=== PATIENT | male | born 1945 | race Caucasian/White ===

== ENCOUNTER → 2016-11-18 | Outpatient (CLI) | payer MEDICARE, OTHER ==
--- NOTE | 2016-11-18 16:09 | RADRPT ---
PROCEDURE: XR AP pelvis/left hip. CLINICAL INDICATION: Hip pain TECHNIQUE: AP pelvis/lateral left hip views performed. COMPARISON: 12/25/2015 FINDINGS: There is a left total hip replacement. There is no evidence of loosening of the prosthesis. There is mild right hip osteoarthrosis. This is associated with joint space narrowing, subchondral s clerosis and osteophytosis. There is normal osseous mineralization. No fractures or osseous lesion s are identified. The soft tissues are unremarkable. IMPRESSION: Left total hip replacement Mild right hip osteoarthrosis. RPTAT: [facility] .Isauro Zamora MD, Date Time Electronically viewed and signed by .Isauro Zamora MD, on 11/18/2016 16:08 .B/
--- NOTE | 2016-11-18 19:16 | HKNOTE ---
DATE OF SERVICE: Patient comes in complaining of an elevated cobalt and chromium level. He had a metal on metal hip replacement, which was performed many years ago by Dr. Hillman (approximately 12 years ago). He has had elevated cobalt and chromium levels. He gets annual cobalt and chromium levels. 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 He has no pain whatsoever in his left hip. His recent cobalt and chromium levels increased slightly and his fire lieutenant marine was "very concerned." Jay self comes in for questions. He comes in with his . PHYSICAL EXAMINATION: VITAL SIGNS: Height 5 foot 10 inches, weight 153 pounds. Blood pressure 160/70, temperature 98.7. HIPS: Both hips have full range of motion without pain. IMAGING: Plain x-rays of his pelvis and left hip obtained today show all components to be satisfact ory and appear to be well attached to the bone. The femoral component is in slight varus and there is some suggestion that it may in fact have some loosening, but there is a bridge of bone on the med ial aspect of the stem near the distal end, which seems to suggest that there is indeed anchorage. Given the fact that he has no pain my suspicion would be that it is well attached to the bone. The most recent cobalt and chromium levels on 10/29/2016. Chromium 8.2. Jennings 7.3. MANAGEMENT: The patient is advised that these levels are below what would be considered to be a thr eat level, which is currently considered to be 10. I gave them reassurance that nothing needs to be done and should continue taking these cobalt and chromium levels annually and should return if the l evels go over 10 or if he has pain in the hip. Dictated By: YOSSI SANCHEZ/KARIE Conf#: [id number] DID#: [id number]
== END | disposition home or self-care (01) ==
LOC: HKI 14:31
DX: Z47.1 Aftercare following joint replacement surgery (principal); Z96.642 Presence of left artificial hip joint
CPT/HCPCS: 73502; G0463

== ENCOUNTER → 2018-01-05 | Outpatient (CLI) | END | disposition home or self-care (01) ==

== ENCOUNTER → 2019-01-29 | Outpatient (CLI) | payer MEDICARE, OTHER ==
--- NOTE | 2019-01-29 21:27 | CONS ---
Assessment/Plan Assessment/Plan Hospital Course (Demo Recall) This is a 73-year-old male who is over 12 years status post left total hip arthroplasty with an ASR cup. Overall he is doing well with no symptoms or signs in his history or on examination. However his: Hormone levels have steadily increased over the past several years. His cobalt level is now significantly elevated and is 10.3. Given his increased metal ion levels compared to previous years and the fact he has an ASR cup further workup is necessary to determine if the patient is at risk of metallosis and pseudotumor. Plan: MARS MRI left hip Follow-up after MRI Consultation Date/Type/Reason Admit Date/Time Date of Consultation: Jan 29, 2019 Reason for Consultation Surveillance for ivqkj-jf-vpjyn hip Date/Time of Note DATE: 01/29/19 TIME: 21:17 Hx of Present Illness This is a 73-year-old male who presents to clinic today to establish surveillance for his right iyqkn-uo-nboqi hip. In 2005 he underwent a left total hip arthroplasty by Dr. hillman. An ASR cup was implanted. Over the last several years he was being followed by Dr. Martin with annual serum metal ion levels. In recent years they have slowly but steadily increased. He has remained completely asymptomatic. Denies any groin pain denies any lateral pain along his greater trochanter or thigh. Denies any difficulty walking or participating in his activities. He does have history of back pain and back problems with radiculopathy. He states that it is clear to him when something is from the back and when it is not. He denies numbness and tingling. He has not had previous advanced imaging of the npxrt-xj-fhhkg hip. Denies any fevers and chills. Denies any complications. Patient denies fever, chills, shortness of breath, chest pain, nausea/vomiting, constipation, diarrhea, numbness, and tingling. Past Medical History Aortic valve abnormality Hypertension Osteoarthritis Osteoporosis Allergies: Coded Allergies: No Known Allergy (Unverified , 10/25/14) Past Surgical History Right total hip arthroplasty ASR cup componentDrRodrigo Hillman 2005 Back surgery 2000 Family History Significant Family History: no pertinent family hx Social History Alcohol Use: none Smoking Status: Never smoker Drug Use: none Exam/Review of Systems Exam Vitals Weight: 156 pounds Height: 5 feet 10 inches Heart Rate: 69 Blood Pressure: 145/67 Exam General: Awake, alert, in no acute distress, pleasant and cooperative Heart: regular rhythm Lungs: breathing comfortably, no tachypnea or dyspnea Musculoskeletal: Well developed male in no apparent distress. Gait is normal without short leg component. Standing, the pelvis is level and supine there is no true leg length discrepancy. No tenderness over trochanteric bursa or IT band. ----- Range of motion: Flexion: 120 Extension: 0 Internal rotation: 20 External rotation: 45 Abduction: 60 Adduction: 10 ----- Sitting there is no pelvic obliquity. Pain at the extremes of motion of the affected hip. Skin was intact throughout both lower extremities. Sensation intact to light touch in a sural, saphenous, deep peroneal, superficial peroneal, medial and lateral plantar nerve distribution. Neurovascular exam showed 5/5 strength in the abductors, quads, EHL/tibialis anterior/gastroc. Normal and symmetrical pulses were palpated in both the dorsalis pedis and posterior tibial arteries. There is no sign of venous stasis. Results Results 24hrs Lab results: 12/04/2018 Serum cobalt: 10.3 Serum chromium: 3.6 Imaging Imaging Xrays obtained in clinic today and personally reviewed by myself: AP pelvis and AP/Lat of the left hip demonstrate hip s/p RAINA with hip reduced. Components in good position and alignment. No signs of wear, osteolysis, loosening, component failure, or fracture. No acute complications. This is an ASR cup YOLI DOSHI MD Jan 29, 2019 21:26
--- NOTE | 2019-01-31 08:56 | RADRPT ---
PROCEDURE: XR Pelvis and Bilateral Hips CLINICAL INDICATION: Hip pain. TECHNIQUE: Three views of the pelvis and bilateral hips were obtained. COMPARISON: 01/05/2018 FINDINGS: There is no acute fracture or dislocation. There are stable postsurgical changes of left total hip ar throplasty. The hardware is intact and well aligned. No periprosthetic fracture or lucency is present . There are moderate degenerative changes of the right hip. The right femoral head is well-seated wit hin the right acetabulum. The bone mineralization is diffusely decreased. Multiple pelvic phleboliths are seen. IMPRESSION: 1. Stable postsurgical changes of total left hip arthroplasty, well-aligned. 2. Moderate degenerative changes of the right hip, unchanged. RPTAT: AAEE Physician Pedro Date Time Electronically viewed and signed by Physician Pedro on 01/31/2019 08:56 RF/
== END | disposition home or self-care (01) ==
LOC: HKI 14:49
PROVIDERS: ATTEND Orthopaedic Surgery Adult Reconstructive Orthopaedic Surgery
DX: Z09 Encounter for follow-up examination after completed treatment for conditions other than malignant neoplasm (principal); Z96.642 Presence of left artificial hip joint; I10 Essential (primary) hypertension; I35.8 Other nonrheumatic aortic valve disorders; M19.90 Unspecified osteoarthritis, unspecified site
CPT/HCPCS: 73523; G0463

== ENCOUNTER → 2019-02-14 | Outpatient (CLI) | payer MEDICARE, OTHER ==
--- NOTE | 2019-02-14 19:10 | CONS ---
Consult Date/Type/Reason Admit Date/Time Initial Consult Date Date/Time of Note DATE: 02/14/19 TIME: 19:01 Subjective This is a 73-year-old male following up today for MRI review of left flbjg-fo-zzfby hip. Brief summary of his history is that he has a kybqc-zx-exwmw hip, specifically the ASR acetabular component about 12 years ago. Over the over the last number of years he has been followed closely with roxane vallejo serum metal ion levels. The metal ion levels have significantly increased over the past years. However he has remained completely asymptomatic. He continues to complain of no pain and states his hip is functioning normally. At last visit an MRI with metal reduction sequencing was ordered in order to evaluate for any pseudotumor formation or soft tissue destruction especially the abductors. Denies any fevers or chills. Objective Exam General: Awake, alert, in no acute distress, pleasant and cooperative Heart: regular rhythm Lungs: breathing comfortably, no tachypnea or dyspnea Musculoskeletal: Well developed male in no apparent distress. Gait is normal without short leg component. Standing, the pelvis is level and supine there is no true leg length discrepancy. No tenderness over trochanteric bursa or IT band. ----- Range of motion: Flexion: 120 Extension: 0 Internal rotation: 20 External rotation: 45 Abduction: 60 Adduction: 10 ----- Sitting there is no pelvic obliquity. Pain at the extremes of motion of the affected hip. Skin was intact throughout both lower extremities. Sensation intact to light touch in a sural, saphenous, deep peroneal, superficial peroneal, medial and lateral plantar nerve distribution. Neurovascular exam showed 5/5 strength in the abductors, quads, EHL/tibialis anterior/gastroc. Normal and symmetrical pulses were palpated in both the dorsalis pedis and posterior tibial arteries. There is no sign of venous stasis. Results/Medications Imaging Left hip from outside facility was personally reviewed. MRI of this hip included MAVRIC metal artifact reduction sequencing ([facility] [id number] [facility], [address], [place] [address]). MRI demonstrates a left hip arthroplasty with a small joint effusion. There is no obvious soft tissue component identified to suggest a pseudotumor. The gluteus medius and minimus insertions are preserved. There is no fluid outside the joint that is contiguous with the joint. There is a very small amount of trochanteric bursal fluid. There is some degenerative changes of the L-spine. Assessment/Plan Hospital Course (Demo Recall) This is a 73-year-old male approximately 12 years status post left guuvp-jr-dnlrt total hip arthroplasty with ASR acetabular component. His last metal ion results from December 04, 2018 show an increased serum cobalt of 10.3 and a serum chromium of 3.6. As noted before discussed with the patient this specific ratio can be consistent with trunnion gnosis which is a different problem than the ugjvy-es-ryynj bearing wear. The MRI using MAVRIC sequencing does not demonstrate any destruction of the abductor tendons or muscles. There is no pseudotumor formation. There is a small joint effusion which is within normal limits. Based on the serum iron levels and the type of device used for his total hip arthroplasty it can be argued to recommend revision surgery at this time. However the patient is completely asymptomatic and the MRI does not show any signs of pseudotumor or destructive process in the soft tissues. At this time I believe the morbidity of a revision hip replacement outweighs the benefits. He does need to continue to have close follow-up to ensure that he does not go on to formation of pseudotumor and destruction of his soft tissues. I would like to see him back in 6 months with new metal ion levels. If he remains asymptomatic I would like to repeat an MRI in 1 year YOLI DOSHI MD Feb 14, 2019 19:10
== END | disposition home or self-care (01) ==
LOC: HKI 13:26
PROVIDERS: ATTEND Orthopaedic Surgery Adult Reconstructive Orthopaedic Surgery
DX: T84.091D Other mechanical complication of internal left hip prosthesis, subsequent encounter (principal); Y83.8 Other surgical procedures as the cause of abnormal reaction of the patient, or of later complication, without mention of misadventure at the time of the procedure
CPT/HCPCS: G0463